=== PATIENT | male | born 1960 | race American Indian/Alaskan Native ===

== ENCOUNTER 2017-02-14 14:52 | Emergency (ER) | payer MEDICAID ==
[2017-02-14 15:23] VITALS: BP 140/80
== END 2017-02-15 05:12 | disposition left against medical advice (07) ==
LOC: ED 14:52
DX: M25.562 Pain in left knee (principal); M25.512 Pain in left shoulder; Z53.21 Procedure and treatment not carried out due to patient leaving prior to being seen by health care provider

== ENCOUNTER 2017-02-15 07:04 | Emergency (ER) | payer MEDICAID ==
[2017-02-15 07:33] VITALS: BP 126/80
[2017-02-15] MEDS ORDERED: FLEXERIL PO ONE (09:11)
[2017-02-15] MEDS ORDERED: TORADOL IM ONE (09:11)
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
== END 2017-02-15 10:01 | disposition home or self-care (01) ==
LOC: ED 07:04
DX: S39.012A Strain of muscle, fascia and tendon of lower back, initial encounter (principal); M25.562 Pain in left knee; M79.1 Myalgia; I10 Essential (primary) hypertension; M19.90 Unspecified osteoarthritis, unspecified site; W01.0XXA Fall on same level from slipping, tripping and stumbling without subsequent striking against object, initial encounter; Y93.89 Activity, other specified; Y92.89 Other specified places as the place of occurrence of the external cause; Y99.8 Other external cause status
CPT/HCPCS: 96372; 99282; J1885

== ENCOUNTER 2017-11-06 18:13 | Emergency (ER) | payer MEDICAID ==
[2017-11-06] MEDS ORDERED: ASPIRIN PO ONE (18:33)
[2017-11-06 19:17] LABS: Basophils % (Auto) 0.8 % (0.0-1.8); Eosinophils # (Auto) 0.2 K/mm3 (0.0-0.4); Eosinophils % (Auto) 3.1 % (0.0-4.3); Hematocrit 41.4 % (35.5-45.6); Hemoglobin 14.4 gm/dl (11.8-15.2); Lymphocytes # (Auto) 1.4 K/mm3 (1.2-5.4); Lymphocytes % (Auto) 27.1 % (13.4-35.0); Mean Corpuscular HGB Conc 35 % (32-34); Mean Corpuscular Hemoglobin 31 pg (28-32); Mean Corpuscular Volume 89 fl (84-94); Monocytes # (Auto) 0.5 K/mm3 (0.0-0.8); Monocytes % (Auto) 9.5 % (0.0-7.3); Platelet Count 136 K/mm3 (140-440); Red Blood Count 4.64 M/mm3 (3.65-5.03); Red Cell Distribution Width 13.9 % (13.2-15.2)
[2017-11-06] MEDS ORDERED: BREVIBLOC DRIP 2.5GM/250ML 2.5 GM/250 ML BAG IV ONE (20:03)
[2017-11-06] MEDS ORDERED: NORMODYNE IV ONE (20:11)
[2017-11-06] MEDS ORDERED: ZOFRAN IV ONE (20:11)
[2017-11-06] MEDS ORDERED: MORPHINE IV ONE (20:11)
[2017-11-06 20:13] LABS: BUN/Creatinine Ratio 12; Blood Urea Nitrogen 18 mg/dL (9-20); Calcium 9.4 mg/dL (8.4-10.2); Hemolysis Index 5
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
[2017-11-06] MEDS ORDERED: SUBLIMAZE IV ONE ×4 (20:50→23:08)
[2017-11-06 20:54] LABS: INR 1.14 (0.87-1.13)
[2017-11-06] MEDS ORDERED: SUBLIMAZE ONE (20:55)
--- NOTE | 2017-11-06 21:24 | Cat Scan Report ---
FINAL REPORT PROCEDURE: CT ANGIO CHEST TECHNIQUE: Computerized tomographic angiography of the chest was performed after the IV injection of iodinated nonionic contrast including image processing. The image data was postprocessed using 2-dimensional multiplanar reformatted (MPR) and 3-dimensional (MIP and/or volume rendered) techniques. HISTORY: h/o aortic dissection, chest pain COMPARISON: 03/16/2013 FINDINGS: Chronic aortic dissection extending from the distal aortic arch superiorly to the aortic bifurcation inferiorly is again noted with interval increase in the thoracic and abdominal aortic diameter. Maximal diameter of the thoracic portion measures 9.2 x 8.6 centimeters in transverse and AP dimensions at the level of proximal descending portion. Corresponding prior measurements were 7.2 x 7.7 centimeters. Maximal transverse and AP dimensions of abdominal aorta are located in the suprarenal portion measuring 4.9 x 4.6 centimeters compared to the prior measurements of 4.3 x 3.8 centimeters. The true lumen is located to the left at the proximal descending level, posteriorly at the distal descending level and again to the left in the abdomen supplying the celiac, superior mesenteric and left renal arteries. There are 2 right renal arteries 1 of which is arising from the true lumen and the 2nd 1 at arising from the false lumen. There is uniform opacification of bilateral kidneys.. True lumen is communicating with the false lumen at the level of oh and at the aortic bifurcation. Ascending aorta and the origins of great vessels from aortic arch or unremarkable. Lungs and pleural spaces are clear. Abdominal and pelvic viscera are unremarkable. Mild degree degenerative changes are identified involving the lower lumbar spine. 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
--- NOTE | 2017-11-06 21:29 | Cat Scan Report ---
FINAL REPORT PROCEDURE: CT ANGIO ABDOMEN PELVIS TECHNIQUE: Computerized axial tomographic angiography of the abdomen and pelvis was performed after the IV injection of iodinated nonionic contrast. The image data was postprocessed using 2-dimensional multiplanar reformatted (MPR) and 3-dimensional (MIP and/or volume rendered) techniques. HISTORY: h/o aortic dissection, chest pain COMPARISON: No prior studies are available for comparison. FINDINGS: Chronic aortic dissection extending from the distal aortic arch superiorly to the aortic bifurcation inferiorly is again noted with interval increase in the thoracic and abdominal aortic diameter. Maximal diameter of the thoracic portion measures 9.2 x 8.6 centimeters in transverse and AP dimensions at the level of proximal descending portion. Corresponding prior measurements were 7.2 x 7.7 centimeters. Maximal transverse and AP dimensions of abdominal aorta are located in the suprarenal portion measuring 4.9 x 4.6 centimeters compared to the prior measurements of 4.3 x 3.8 centimeters. The true lumen is located to the left at the proximal descending level, posteriorly at the distal descending level and again to the left in the abdomen supplying the celiac, superior mesenteric and left renal arteries. There are 2 right renal arteries 1 of which is arising from the true lumen and the 2nd 1 at arising from the false lumen. There is uniform opacification of bilateral kidneys.. True lumen is communicating with the false lumen at the level of oh and at the aortic bifurcation. Ascending aorta and the origins of great vessels from aortic arch or unremarkable. Lungs and pleural spaces are clear. Abdominal and pelvic viscera are unremarkable. Mild degree degenerative changes are identified involving the lower lumbar spine. 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
[2017-11-06 21:36] LABS: Partial Thromboplastin Time 64.5 Sec. (24.2-36.6)
[2017-11-06 23:11] VITALS: BP 159/97
== END 2017-11-06 22:59 | disposition other institution (70) ==
LOC: ED 18:13
DX: I71.01 Dissection of thoracic aorta (principal); Z79.82 Long term (current) use of aspirin; I10 Essential (primary) hypertension; M19.90 Unspecified osteoarthritis, unspecified site; E78.00 Pure hypercholesterolemia, unspecified
CPT/HCPCS: 36415; 71275; 74174; 80048; 84484; 85025; 85610; 85730; 93005; 93010; 96365; 96375; 96376; 99291; J2270; J2405; J3010; Q9967

== ENCOUNTER 2018-09-14 16:40 | Emergency (ER) | payer MEDICAID ==
[2018-09-14] MEDS ORDERED: NACL 0.9% 1000 ML 1,000 ML ONE (16:47)
[2018-09-14] MEDS ORDERED: SOLU-Medrol ONE (16:47)
[2018-09-14] MEDS ORDERED: PEPCID IV ONE ×2 (16:48→16:58)
[2018-09-14] MEDS ORDERED: ADRENALINE P/F ONE (16:48)
[2018-09-14] MEDS ORDERED: BENADRYL ONE (16:48)
[2018-09-14] MEDS ORDERED: BENADRYL IV ONE (16:58)
[2018-09-14] MEDS ORDERED: SOLU-Medrol IV ONE (16:58)
[2018-09-14] MEDS ORDERED: ADRENALINE P/F SUB-Q ONE (16:58)
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
[2018-09-14 17:19] LABS: Hemoglobin 16.1 gm/dl (11.8-15.2); Mean Corpuscular HGB Conc 33 % (32-34); Mean Corpuscular Hemoglobin 27 pg (28-32); Mean Corpuscular Volume 83 fl (84-94); Platelet Count 227 K/mm3 (140-440); Red Blood Count 5.89 M/mm3 (3.65-5.03); Red Cell Distribution Width 18.3 % (13.2-15.2)
[2018-09-14 17:38] LABS: Alanine Aminotransferase 17 units/L (7-56); Albumin 4.2 g/dL (3.9-5); BUN/Creatinine Ratio 18; Blood Urea Nitrogen 20 mg/dL (9-20); Calcium 9.5 mg/dL (8.4-10.2); Hemolysis Index 89
[2018-09-14] MEDS ORDERED: TYLENOL ONE (17:39)
[2018-09-14 17:55] VITALS: BP 144/99
[2018-09-14] MEDS ORDERED: TYLENOL PO ONE (19:09)
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
== END 2018-09-14 19:50 | disposition home or self-care (01) ==
LOC: ED 16:40
DX: T63.441A Toxic effect of venom of bees, accidental (unintentional), initial encounter (principal); S00.03XA Contusion of scalp, initial encounter; G44.319 Acute post-traumatic headache, not intractable; L50.9 Urticaria, unspecified; I10 Essential (primary) hypertension; M19.90 Unspecified osteoarthritis, unspecified site; E78.00 Pure hypercholesterolemia, unspecified; Z91.030 Bee allergy status; Z79.82 Long term (current) use of aspirin; Z79.899 Other long term (current) drug therapy; W01.198A Fall on same level from slipping, tripping and stumbling with subsequent striking against other object, initial encounter; Y93.89 Activity, other specified; Y92.098 Other place in other non-institutional residence as the place of occurrence of the external cause; Y99.8 Other external cause status
CPT/HCPCS: 36415; 70450; 80053; 82140; 85027; 96372; 96374; 96375; 99284; J0171; J1200; J2930; J7030

== ENCOUNTER 2019-09-17 12:30 | Emergency (ER) | payer MEDICAID ==
[2019-09-17 13:24] VITALS: BP 111/78
--- NOTE | 2019-09-17 13:58 | XRay Report ---
CHEST 2 VIEWS INDICATION / CLINICAL INFORMATION: Shortness of breath. COMPARISON: 01/10/2018 FINDINGS: SUPPORT DEVICES: Aortic stent graft appears in stable appropriate position. HEART / MEDIASTINUM: Stable. LUNGS / PLEURA: No significant pulmonary or pleural abnormality. No pneumothorax. ADDITIONAL FINDINGS: No significant additional findings. IMPRESSION: 1. No acute findings. Signer Name: Aayush Andres MD Signed: 09/17/2019 1:53 PM Workstation Name: [id number]
--- NOTE | 2019-09-17 14:04 | Event Note ---
ED Screening Note ED Screening Note: generalized pain fever headache cough pmh ao aneurysm - surgeries htn hpld no c/e/d no exposure This initial assessment/diagnostic orders/clinical plan/treatment(s) is/are subject to change based on patients health status, clinical progression and re- assessment by fellow clinical providers in the ED. Further treatment and workup at subsequent clinical providers discretion. Patient/guardian urged not to elope from the ED as their condition may be serious if not clinically assessed and managed. Initial orders include: ro covid/uri/
[2019-09-17 15:06] LABS: Basophils % (Auto) 0.9 % (0.0-1.8); Eosinophils % (Auto) 0.8 % (0.0-4.3); Hematocrit 39.8 % (35.5-45.6); Hemoglobin 13.4 gm/dl (11.8-15.2); Lymphocytes # (Auto) 0.8 K/mm3 (1.2-5.4); Lymphocytes % (Auto) 25.9 % (13.4-35.0); Mean Corpuscular HGB Conc 34 % (32-34); Mean Corpuscular Volume 88 fl (84-94); Monocytes # (Auto) 0.5 K/mm3 (0.0-0.8); Monocytes % (Auto) 14.8 % (0.0-7.3); Platelet Count 172 K/mm3 (140-440); Red Blood Count 4.53 M/mm3 (3.65-5.03); Red Cell Distribution Width 13.9 % (13.2-15.2)
[2019-09-17 15:35] LABS: Alanine Aminotransferase 21 units/L (7-56); Albumin 4.2 g/dL (3.9-5); BUN/Creatinine Ratio 10; Blood Urea Nitrogen 9 mg/dL (9-20); Calcium 9.5 mg/dL (8.4-10.2); Hemolysis Index 25
[2019-09-17] MEDS ORDERED: ACETAMINOPHEN 325 MG TAB PO ONE (15:59)
== END 2019-09-17 23:30 | disposition left against medical advice (07) ==
LOC: ED 12:30
DX: R06.02 Shortness of breath (principal); Z53.21 Procedure and treatment not carried out due to patient leaving prior to being seen by health care provider
CPT/HCPCS: 36415; 71046; 80053; 82140; 84484; 85025; 87040; 93005